=== PATIENT | male | born 1995 | race Caucasian/White ===

== ENCOUNTER 2019-06-27 08:27 | Emergency (ER) | payer OTHER ==
[~2019-06-27] VITALS: Ht 167.6 cm; Wt 68.0 kg
[2019-06-27] MEDS ORDERED: CEPHALEXIN500 M1 PO (10:39)
[2019-06-27 11:15] VITALS: BP 142/84
== END 2019-06-27 11:15 | disposition home or self-care (01) | DRG 605 ==
LOC: ED 08:27
PROC: 0HQLXZZ Repair Left Lower Leg Skin, External Approach (ICD-10-PCS; principal; 2019-06-27)
DX: S81.812A Laceration without foreign body, left lower leg, initial encounter (principal); S86.922A Laceration of unspecified muscle(s) and tendon(s) at lower leg level, left leg, initial encounter; W22.8XXA Striking against or struck by other objects, initial encounter; Y93.89 Activity, other specified; Y92.89 Other specified places as the place of occurrence of the external cause; Y99.0 Civilian activity done for income or pay